=== PATIENT | female | born 1975 | race Caucasian/White ===

== ENCOUNTER 2018-04-07 17:12 | Inpatient (IN) | payer OTHER ==
[~2018-04-07] VITALS: Ht 177.8 cm; Wt 86.8 kg
[2018-04-07 17:14] VITALS: BP 108/71
[2018-04-07 18:25] LABS: BASO # 0.1 10*3/uL (0.0-0.1); BASO % 1.1 % (0.0-1.0); EOS # 0.1 10*3/uL (0.0-0.4); EOS % 1.7 % (1.0-4.0); HEMATOCRIT 36.4 % (37.0-47.0); HEMOGLOBIN 12.6 g/dl (12.0-16.0); LYMPH # 1.1 10*3/uL (1.3-4.4); MEAN CELL VOLUME 87.3 fl (81.0-99.0); MEAN CORPUSCULAR HGB 30.2 pg (27.0-31.0); MEAN CORPUSCULAR HGB CONC 34.6 g/dl (33.0-37.0); MEAN PLATELET VOLUME 10.1 fl (9.6-12.3); MONO # 0.3 10*3/uL (0.1-1.0); MONO % 4.6 % (3.0-9.0); NEUT % 76.3 % (47.0-73.0); PLATELET COUNT AUTOMATED 152 10*3/uL (130-400); RED BLOOD COUNT 4.17 10*6/uL (4.10-5.10); RED CELL DISTRI WIDTH 13.1 % (0-14.5); WHITE BLOOD COUNT 6.6 10*3/uL (4.8-10.8)
[2018-04-07 18:38] LABS: BILIRUBIN NEGATIVE (NEGATIVE); BLOOD TRACE-INTACT (NEGATIVE); CLARITY CLEAR (CLEAR); COLOR YELLOW (YELLOW); GLUCOSE NEGATIVE (NEGATIVE); KETONE NEGATIVE (NEGATIVE); LEUKO ESTERASE NEGATIVE (NEGATIVE); NITRITE NEGATIVE (NEGATIVE); SPECIFIC GRAVITY 1.015 (1.005-1.030); UROBILINOGEN 0.2 E.U./dl (0.2-1.0)
[2018-04-07 18:44] LABS: ALBUMIN 3.1 gm/dl (3.1-4.5); ALKALINE PHOSPHATASE 126 U/L (45-117); BUN 8 mg/dl (7-24); CHLORIDE 106 mmol/L (98-107); CREATININE 0.75 mg/dL (0.55-1.02); POTASSIUM 3.8 mmol/L (3.5-5.1); SGOT/AST 51 IU/L (3-35); SGPT/ALT 59 U/L (12-78); SODIUM 138 mmol/L (136-145); TOTAL PROTEIN 6.7 gm/dL (6.4-8.2)
[2018-04-07 18:45] LABS: URINE AMPHETAMINES < 1000 (1000ng/ml); URINE BARBITURATES < 200 (200ng/ml); URINE BENZODIAZEPINES < 200 (200ng/ml); URINE CANNABINOIDS (THC) < 50 (50ng/ml); URINE COCAINE < 300 (300ng/ml); URINE METHADONE < 300 (300ng/ml); URINE OPIATES > 300 (300ng/ml)
[2018-04-07 18:45] LABS: ACETAMINOPHEN (TYLENOL) < 5.0 ug/ml (10-30); ETHYL ALCOHOL < 3.0 mg/dl (<3)
[2018-04-07 18:46] LABS: URINE PHENCYCLIDINE < 25 (25ng/ml)
[2018-04-07 18:48] LABS: BACTERIA 3+; RBC 0-2 rbc/hpf (0-2)
[2018-04-07 20:20] VITALS: BP 104/72
[2018-04-08] VITALS: BP 100/50
[2018-04-08 06:58] LABS: BASO # 0.1 10*3/uL (0.0-0.1); BASO % 1.1 % (0.0-1.0); EOS # 0.2 10*3/uL (0.0-0.4); EOS % 4.1 % (1.0-4.0); HEMATOCRIT 33.6 % (37.0-47.0); HEMOGLOBIN 11.5 g/dl (12.0-16.0); LYMPH % 45.9 % (27.0-41.0); MEAN CELL VOLUME 88.2 fl (81.0-99.0); MEAN CORPUSCULAR HGB 30.2 pg (27.0-31.0); MEAN CORPUSCULAR HGB CONC 34.2 g/dl (33.0-37.0); MEAN PLATELET VOLUME 10.5 fl (9.6-12.3); MONO # 0.3 10*3/uL (0.1-1.0); MONO % 7.3 % (3.0-9.0); NEUT # 1.8 10*3/uL (2.3-7.9); NEUT % 41.4 % (47.0-73.0); PLATELET COUNT AUTOMATED 158 10*3/uL (130-400); RED BLOOD COUNT 3.81 10*6/uL (4.10-5.10); RED CELL DISTRI WIDTH 13.2 % (0-14.5); WHITE BLOOD COUNT 4.4 10*3/uL (4.8-10.8)
[2018-04-08 07:02] LABS: ACT PARTIAL THROMBO TIME 27.6 SECONDS (20.8-31.5); INTERNATIONAL NORM RATIO 0.9 (2.0-3.5)
[2018-04-08 07:16] LABS: ALBUMIN 2.9 gm/dl (3.1-4.5); BUN 8 mg/dl (7-24); CHLORIDE 106 mmol/L (98-107); CHOLESTEROL 164 mg/dL (<200); CREATININE 0.69 mg/dL (0.55-1.02); POTASSIUM 3.6 mmol/L (3.5-5.1); SGOT/AST 37 IU/L (3-35); SGPT/ALT 49 U/L (12-78); SODIUM 140 mmol/L (136-145)
[2018-04-08 07:24] LABS: ALKALINE PHOSPHATASE 119 U/L (45-117); FREE T4 0.92 ng/dl (0.76-1.46); HDL CHOLESTEROL 24 mg/dl (40-60); LDL CHOLESTEROL 67 mg/dL (9-159); PHOSPHOROUS 3.5 mg/dL (2.5-4.9); THYROID STIM HORMONE (HS) 0.507 uIU/ml (0.358-4.75); TOTAL PROTEIN 6.1 gm/dL (6.4-8.2); TRIGLYCERIDES 364 mg/dl (<150); VLDL CHOLESTEROL 73 mg/dL (6-40)
[2018-04-08 08:00] VITALS: BP 96/66
[2018-04-08 12:00] VITALS: BP 90/56
[2018-04-08 16:00] VITALS: BP 79/43; BP 96/52
[2018-04-08] MEDS ORDERED: LYRICA200 M1 PO (16:29)
[2018-04-08] MEDS ORDERED: MOBIC15 MG PO (16:30)
[2018-04-08] MEDS ORDERED: CELEXA20 MG PO (16:31)
[2018-04-08] MEDS ORDERED: OMEPRAZOLE D/R20 MG PO (16:32)
[2018-04-08] MEDS ORDERED: ZOCOR40 MG PO (16:33)
[2018-04-08] MEDS ORDERED: BACLOFEN5 MG PO (16:39)
[2018-04-08] MEDS ORDERED: BUPROPION HYDR100 MG PO (16:40)
[2018-04-08] MEDS ORDERED: KLONOPIN2 M1 PO (16:40)
[2018-04-08] MEDS ORDERED: MORPHINE SULFAT PO (16:41)
[2018-04-08] MEDS ORDERED: PERCOCET 10-321 EACH PO (16:42)
[2018-04-08] MEDS ORDERED: REQUIP1 M1 PO (16:42)
[2018-04-08] MEDS ORDERED: GUAIFENESIN600 MG PO (16:43)
[2018-04-08] MEDS ORDERED: LIDOVEX60 GM T (16:44)
[2018-04-08 20:00] VITALS: BP 90/52
[2018-04-09] VITALS: BP 88/52; BP 90/52
[2018-04-09 12:00] VITALS: BP 86/48
[2018-04-09 16:00] VITALS: BP 96/52
[2018-04-09 20:00] VITALS: BP 92/50
[2018-04-10] VITALS: BP 103/66
[2018-04-10 08:00] VITALS: BP 112/70
[2018-04-10 12:00] VITALS: BP 105/64
[2018-04-10 16:00] VITALS: BP 105/71
[2018-04-10 20:00] VITALS: BP 105/70
[2018-04-11] VITALS: BP 101/61
[2018-04-11 04:00] VITALS: BP 102/64
[2018-04-11 06:39] LABS: BASO # 0.1 10*3/uL (0.0-0.1); BASO % 1.2 % (0.0-1.0); EOS # 0.2 10*3/uL (0.0-0.4); EOS % 3.8 % (1.0-4.0); HEMATOCRIT 34.5 % (37.0-47.0); HEMOGLOBIN 11.6 g/dl (12.0-16.0); LYMPH # 2.6 10*3/uL (1.3-4.4); LYMPH % 52.7 % (27.0-41.0); MEAN CELL VOLUME 88.2 fl (81.0-99.0); MEAN CORPUSCULAR HGB 29.7 pg (27.0-31.0); MEAN CORPUSCULAR HGB CONC 33.6 g/dl (33.0-37.0); MEAN PLATELET VOLUME 10.4 fl (9.6-12.3); MONO # 0.3 10*3/uL (0.1-1.0); MONO % 6.1 % (3.0-9.0); NEUT # 1.8 10*3/uL (2.3-7.9); PLATELET COUNT AUTOMATED 182 10*3/uL (130-400); RED BLOOD COUNT 3.91 10*6/uL (4.10-5.10); RED CELL DISTRI WIDTH 12.6 % (0-14.5)
[2018-04-11 06:56] LABS: CREATININE 0.91 mg/dL (0.55-1.02)
[2018-04-11 08:00] VITALS: BP 95/58
[2018-04-11] MEDS ORDERED: CHLORDIAZEPOXIDE5 M2 PO (11:43)
[2018-04-11] MEDS ORDERED: CHLORDIAZEPOXID10 M2 PO (11:43)
[2018-04-11] MEDS ORDERED: FAMOTIDINE20 M1 PO (11:43)
[2018-04-11] MEDS ORDERED: PHENERGAN25 M3 PO (11:43)
[2018-04-11 12:00] VITALS: BP 98/72
== END 2018-04-11 13:10 | disposition home or self-care (01) | DRG 897 ==
LOC: ED 17:12 → 4E 19:36 → EDHOLD 19:36 → 4E 20:05
PROVIDERS: Internal Medicine; Physician Assistant
DX: F11.23 Opioid dependence with withdrawal (principal); E44.0 Moderate protein-calorie malnutrition; F19.230 Other psychoactive substance dependence with withdrawal, uncomplicated; K21.9 Gastro-esophageal reflux disease without esophagitis; Z72.0 Tobacco use; Z71.6 Tobacco abuse counseling; R74.0 Nonspecific elevation of levels of transaminase and lactic acid dehydrogenase [LDH]; R82.5 Elevated urine levels of drugs, medicaments and biological substances; R19.7 Diarrhea, unspecified; R31.21 Asymptomatic microscopic hematuria; R82.71 Bacteriuria; F41.9 Anxiety disorder, unspecified; F32.9 Major depressive disorder, single episode, unspecified; G89.29 Other chronic pain; G62.9 Polyneuropathy, unspecified; M79.7 Fibromyalgia; E78.5 Hyperlipidemia, unspecified; G25.81 Restless legs syndrome; E55.9 Vitamin D deficiency, unspecified; R74.8 Abnormal levels of other serum enzymes; Z86.73 Personal history of transient ischemic attack (TIA), and cerebral infarction without residual deficits; Z90.49 Acquired absence of other specified parts of digestive tract; Z88.0 Allergy status to penicillin; Z88.8 Allergy status to other drugs, medicaments and biological substances; Z84.89 Family history of other specified conditions; Z68.27 Body mass index [BMI] 27.0-27.9, adult